=== PATIENT | male | born 1945 | race Caucasian/White ===

== ENCOUNTER 2022-10-11 10:14 | Outpatient (CLI) | payer MEDICARE, SELFPAY | END 2022-10-11 10:15 | disposition home or self-care (01) | PROVIDERS: PCP Family Medicine; Visit Provider Family Medicine | DX: I10 Essential (primary) hypertension (principal); E78.5 Hyperlipidemia, unspecified | CPT/HCPCS: 80048; 80061 ==

== ENCOUNTER 2024-01-08 09:49 | Outpatient (CLI) | payer MEDICARE, SELFPAY | END 2024-01-08 09:50 | disposition home or self-care (01) | PROVIDERS: PCP Family Medicine; Visit Provider Family Medicine | DX: Z00.00 Encounter for general adult medical examination without abnormal findings (principal); I10 Essential (primary) hypertension; E78.5 Hyperlipidemia, unspecified; Z13.0 Encounter for screening for diseases of the blood and blood-forming organs and certain disorders involving the immune mechanism; Z13.21 Encounter for screening for nutritional disorder; Z13.29 Encounter for screening for other suspected endocrine disorder | CPT/HCPCS: 80048; 80061; 82607; 84443 ==

== ENCOUNTER 2025-01-13 13:57 | Outpatient (CLI) | payer MEDICARE, SELFPAY | END 2025-01-13 13:58 | disposition home or self-care (01) | PROVIDERS: PCP Family Medicine; Visit Provider Family Medicine | DX: I10 Essential (primary) hypertension (principal); E78.2 Mixed hyperlipidemia; H53.9 Unspecified visual disturbance | CPT/HCPCS: 80048; 80061 ==

== ENCOUNTER 2025-01-15 08:51 | Outpatient (CLI) | payer MEDICARE, SELFPAY ==
--- NOTE | 2025-01-15 09:15 | CRLHL7_ITS ---
For Patients: As a result of the Century Cures Act, medical imaging exams and procedure reports are released immediately into your electronic medical record. You may view this report before your referring provider. If you have questions, please contact your health care provider. INDICATION: Diplopia. TECHNIQUE: Brain is scanned with sagittal T1 axial FLAIR T2 diffusion-weighted and gadolinium enhanced T1 weighted sequence. The orbits scanned with additional thin section axial and coronal T2 axial and coronal T1 weighted images with and without gadolinium contrast. 15 cc of Dotarem intravenous gadolinium contrast was utilized. FINDINGS: MRI brain: The ventricles are normal in size and configuration. There is prominence of subarachnoid spaces due to mild generalized volume loss. There is no evidence of acute ischemic infarction. There are no areas of diffusion restriction. No evidence of intracranial hemorrhage. No mass effect or shift of midline. Several small foci of nonenhancing FLAIR/T2 hyperintensity within cerebral white matter consistent with mild chronic microvascular ischemia. No enhancing intra-axial or extra-axial lesions. MRI orbits: The orbital globes appear symmetrical. Evidence of prior cataract surgery. The extraocular muscles and orbital fat planes appear normal. The optic nerves chiasm and proximal optic tracts appear normal. The cavernous sinuses appear normal. No enhancing intraconal or extraconal lesions or mass lesions seen. Incidental polypoid enlargement of the left middle and inferior nasal turbinates and associated nasal septal curvature. IMPRESSION: 1. No evidence of acute ischemic infarction, intracranial hemorrhage, mass or enhancing lesion. 2. Mild chronic microvascular ischemic changes. 3. No evidence of posterior orbital or parasellar lesion. Dictated by Scott Ramirez MD @ 01/16/2025 8:55:19 AM (Electronically Signed)
== END 2025-01-15 08:52 | disposition home or self-care (01) ==
LOC: MRI 08:52
PROVIDERS: PCP Family Medicine; Visit Provider Ophthalmology
DX: H53.2 Diplopia (principal); I67.82 Cerebral ischemia; H50.21 Vertical strabismus, right eye; H50.22 Vertical strabismus, left eye
CPT/HCPCS: 70543; 70553; A9575